=== PATIENT | female | born 1965 | race Caucasian/White ===

== ENCOUNTER 2016-11-11 08:50 | Emergency (ER) | payer OTHER ==
[2016-11-11 12:55] VITALS: BP 135/77
== END 2016-11-11 12:55 | disposition home or self-care (01) ==
LOC: ED 08:50
DX: S00.03XA Contusion of scalp, initial encounter (principal); W20.8XXA Other cause of strike by thrown, projected or falling object, initial encounter; Y93.89 Activity, other specified; Y92.89 Other specified places as the place of occurrence of the external cause; Y99.0 Civilian activity done for income or pay
CPT/HCPCS: J1885